=== PATIENT | female | born 1985 | race Two or more races ===

== ENCOUNTER 2024-01-30 15:37 | Emergency (ER) | payer OTHER ==
[~2024-01-30] VITALS: Ht 160 cm; Wt 52.6 kg
[2024-01-30] MEDS ORDERED: TERBINAFINE HC250 MG PO (15:52)
[2024-01-30] MEDS ORDERED: DEXAMETHASONE 4 MG TABLET PO STA (16:19)
[2024-01-30] MEDS ORDERED: DEXAMETHASONE SODIUM PHOSPHATE 4 MG/ML VIAL ONE (16:27)
[2024-01-30 16:46] LABS: HEMATOCRIT 39.5 % (36.0-45.00); HEMOGLOBIN 13.6 g/dL (12.0-15.00); MEAN CELL VOLUME 85.3 fL (80.00-100.00); MEAN CORPUSCULAR HEMOGLOBIN 29.5 pg (27.00-32.0); MEAN CORPUSCULAR HGB CONC 34.5 g/dl (32.0-36.0); PLATELET COUNT 245 K/uL (150-450); RED BLOOD COUNT 4.63 M/uL (4.00-6.00)
== END 2024-01-30 18:32 | disposition home or self-care (01) ==
LOC: ER 15:38
DX: R21 Rash and other nonspecific skin eruption (principal)